=== PATIENT | male | born 1940 | race Caucasian/White ===

== ENCOUNTER 2022-08-14 04:30 | Day surgery (SDC) | payer OTHER ==
[2022-08-13 10:08] VITALS: BMI 29.7
[2022-08-14 09:20] VITALS: TEMP 97.8
[2022-08-14 10:03] VITALS: BP 109/50; PULSE 70; RESP 16
== END 2022-08-14 11:08 | disposition home or self-care (01) ==
LOC: JASU-ENDO 04:30
PROVIDERS: ATTEND Internal Medicine Gastroenterology
PROC: 0DBM8ZX Excision of Descending Colon, Via Natural or Artificial Opening Endoscopic, Diagnostic (ICD-10-PCS; 2022-08-14)
PROC: 0DBK8ZX Excision of Ascending Colon, Via Natural or Artificial Opening Endoscopic, Diagnostic (ICD-10-PCS; principal; 2022-08-14 08:30)
DX: Z12.11 Encounter for screening for malignant neoplasm of colon (principal); K57.30 Diverticulosis of large intestine without perforation or abscess without bleeding; D12.2 Benign neoplasm of ascending colon; D12.4 Benign neoplasm of descending colon; K64.8 Other hemorrhoids; Z86.010 Personal history of colon polyps
CPT/HCPCS: 88305-TC